=== PATIENT | female | born 2000 | race Caucasian/White ===

== ENCOUNTER 2024-01-26 08:24 | Emergency (ER) | payer BC ==
[~2024-01-26] VITALS: Ht 175.3 cm; Wt 77.3 kg
[2024-01-26 08:26] VITALS: TEMP 98.5
[2024-01-26] MEDS ORDERED: NS 1,000 ML IV ONE (09:00)
[2024-01-26] MEDS ORDERED: Ondansetron 4 MG/2 ML VIAL IV ONE (09:15)
[2024-01-26] MEDS ORDERED: Ketorolac 15 MG/ML VIAL IV ONE (09:15)
[2024-01-26] MEDS ORDERED: Morphine 4 MG/ML VIAL IV ONE (09:15)
[2024-01-26 09:21] LABS: BASO % 0.2 % (0.0-2.0); EOS # 0.1 K/mm3 (0.0-0.7); EOS % 0.6 % (0.0-4.0); GRAN # 5.7 K/mm3 (1.4-6.5); GRAN % 70.8 % (42.2-75.2); HEMATOCRIT 42.3 % (37.0-47.0); HEMOGLOBIN 14.8 g/dl (12.5-16.0); LYMPH # 1.6 K/mm3 (1.2-3.4); LYMPH % 20.1 % (20.0-51.0); MEAN CELL VOLUME 92 fl (80.0-100.0); MEAN CORPUSCULAR HEMOGLOBIN 32 pg (27-31); MEAN CORPUSCULAR HGB CONC 35 g/dl (33.0-37.0); MONO # 0.7 K/mm3 (0.1-0.6); MONO % 8.2 % (1.7-9.3); PLATELET COUNT 223 K/mm3 (130-400); RED BLOOD COUNT 4.59 M/mm3 (4.10-5.30); REDCELL DISTRIBUTION WIDTH-CV 11.9 % (11.5-14.5)
[2024-01-26 09:24] LABS: ALBUMIN 4.6 g/dL (3.5-5.0); BILIRUBIN,TOTAL 0.4 mg/dL (0.2-1.2); CALCIUM 9.6 mg/dL (8.4-10.2); CREATININE, serum 0.76 mg/dL (0.57-1.11); POTASSIUM 3.6 mEq/L (3.5-4.5); TOTAL PROTEIN 7.7 g/dl (6.2-8.1)
[2024-01-26 09:51] LABS: URINE APPEARANCE CLEAR (CLEAR/HAZY); URINE BLOOD NEGATIVE (NEGATIVE); URINE COLOR YELLOW (YELLOW); URINE GLUCOSE NEGATIVE (NEGATIVE); URINE KETONE NEGATIVE (NEGATIVE); URINE NITRATE NEGATIVE (NEGATIVE); URINE PROTEIN(semi-quant) NEGATIVE (NEGATIVE); URINE UROBILINOGEN 0.2 E.U/dL (0.2-1.0)
[2024-01-26] MEDS ORDERED: Iohexol 300 - 100 ML VIAL IV ONE (10:17)
[2024-01-26] MEDS ORDERED: NS 100 ML IV SCH (10:18)
[2024-01-26 10:26] LABS: COLLECTION METHOD CLEAN CATCH
[2024-01-26] MEDS ORDERED: NORCO 325 MG-51 TAB PO (11:17)
[2024-01-26 11:27] VITALS: BP 112/67; PULSE 89
== END 2024-01-26 11:27 | disposition home or self-care (01) ==
LOC: COL.ER 08:24
PROVIDERS: Personal Emergency Response Attendant
DX: N20.0 Calculus of kidney (principal); K62.5 Hemorrhage of anus and rectum
CPT/HCPCS: J1885; J7030; Q9967